=== PATIENT | female | born 1965 | race Caucasian/White ===

== ENCOUNTER → 2016-09-30 | Day surgery (SDC) | payer OTHER ==
[2016-09-29 09:39] VITALS: BMI 31.1
[~2016-09-30] MED LIST: BSS 500 ml-Vancomycin 10 mg-Phenylephrine 1 mg Irrigation IR ONE; CHONDROITIN SULFATE 0.5 ML/PFS INTRAOC ONE; DEXAMETHASONE 4 MG/ML VIAL IV PRN; DIAZEPAM 5 MG TAB PO PRN; FENTANYL 100 MCG/2 ML VIAL ONE; Hyaluronate Sodium (Provisc) 5.5 mg/0.55 ml syringe INTRAOC ONE; LABETALOL 20 MG/4 ML SYRINGE IV PRN; MIDAZOLAM 2 MG/2 ML VIAL ONE; ONDANSETRON HCL 4 MG/2 ML VIAL IV PRN; ONDANSETRON HCL 4 MG/2 ML VIAL ONE; PHENYLEPHRINE 2.5% OPHTH SOLN 2 ML BOT OP EYE ONE; PROPOFOL 200 MG/20 ML VIAL IV ONE; SCOPOLAMINE TRANSDERMAL PATCH TOP ONE; TETRACAINE 0.5% 2 ML OPHTH SOLN OP EYE ONE; TETRACAINE 0.5% 2 ML OPHTH SOLN OP EYE PRN; TROPICAMIDE 1% OPHTH SOLN 2 ML BOTTLE OP EYE ONE; Vancomycin 10 MG, Phenylephrine 1,000 MCG in Balanced Salt Solution 500 ML IO ONE; hydrALAZINE 20 MG/ML VIAL IV PRN
--- NOTE | 2016-09-30 08:32 | SC.ANESEVA ---
Anesthesia Eval & Plan ([facility]) - Providers Stated Procedure: right eye cataract surgery Surgeon:: Aarti Nava - Medications/Allergies Allergies: Allergies adhesive Allergy (Verified 09/29/16 09:45) Rash-Localized Home Medications: Home Medication List Azelastine HCl 205.5 mcg NS DAILY 09/29/16 [History] Cholecalciferol [Vitamin D] 1,000 units PO DAILY 09/29/16 [History] Fexofenadine HCl [Faustina Allergy] 60 mg PO DAILY 09/29/16 [History] Hydrochlorothiazide 25 mg PO DAILY 09/29/16 [History] Methylsulfonylmethane [MSM] 1,000 mg PO DAILY 09/29/16 [History] Potassium 99 mg PO DAILY 09/29/16 [History] Vitamin B Complex 1 each PO DAILY 09/29/16 [History] Current Medication List: Reviewed - Focused Physical Exam NPO since: Since after Midnight Mallampati: Class I Thyromental Distance: Greater than 3 Neck: Full Range of Motion Dental: Normal - no significant findings Cardiovascular/Chest: Normal (RRR no mumurs or rubs.) Respiratory: Lungs clear. negative: Wheezing Any problems with anesthesia, including nausea and vomiting?: Yes (nausea) Any relatives with a history of Malignant Hyperthermia?: No Prone to Motion Sickness: Yes Other: Diagnoses AGE-RELATED NUCLEAR CATARACT, RIGHT EYE (09/30/16) Allergies Allergy/AdvReac Type Severity Reaction Status Date / Time adhesive Allergy Rash-Locali Verified 09/29/16 09:45 zed Home Medications Medication Instructions Recorded Last Taken Type Docosahexanoic Acid/Epa [Fish Oil 1 each PO DAILY 04/28/13 05/01/13 08:00 History Concentrate Softgel] Flaxseed Oil [Flax Seed Oil] 1,000 mg PO DAILY 04/28/13 05/01/13 08:00 History Fluticasone Propionate [Flovent 1 puff INH BID 04/28/13 05/01/13 08:00 History Diskus 50 mcg] Levothyroxine Sodium [Synthroid] 75 mcg PO DAILY 04/28/13 05/01/13 08:00 History Multivitamin [Multiple Vitamins] 1 each PO DAILY 04/28/13 05/01/13 08:00 History Omeprazole 40 mg PO DAILY 08/08/13 08/11/13 08:00 History Verapamil HCl [Verapamil ER] 240 mg PO DAILY 04/28/13 05/01/13 08:00 History Dicyclomine HCl [Bentyl] 10 mg PO BID 05/02/13 Unknown History Azelastine HCl 205.5 mcg NS DAILY 09/29/16 Unknown History Cholecalciferol [Vitamin D] 1,000 units PO DAILY 09/29/16 Unknown History Fexofenadine HCl [Faustina Allergy] 60 mg PO DAILY 09/29/16 Unknown History Hydrochlorothiazide 25 mg PO DAILY 09/29/16 Unknown History Methylsulfonylmethane [MSM] 1,000 mg PO DAILY 09/29/16 Unknown History Potassium 99 mg PO DAILY 09/29/16 Unknown History Vitamin B Complex 1 each PO DAILY 09/29/16 Unknown History Height and Weight Patient's height 5 ft 2 in Patient's weight 77.27 kg Weight (Calculated Kilograms) 77.270 BMI 31.1 Vital Signs Temperature 97.2 F L 09/30/16 07:31 Pulse Rate 91 09/30/16 07:31 Respiratory Rate 18 09/30/16 07:31 Blood Pressure 134/89 09/30/16 07:31 Pulse Oxygen Saturation 93 09/30/16 07:31 - Anesthetic Plan Anesthesia Type: MAC ASA Class: 3 - Focused Review of Systems Cardiac History: Yes: Hx Hypertension, Hx Cardia Arrhythmia (palpitations) HEENT: Yes: Hx Vision Problem, Other HEENT Problems Respiratory: Yes: Hx CPAP Dependent Gastrointestinal: Yes: Hx Gastroesophageal Reflux Disease, Hx Colonoscopy Neurological/Musculoskeletal: Yes: Hx Migraine, Hx Neurological Disorders Endocrine: Yes: Hx Hypothyroidism Smoking Status: Never smoker Surgical History: Yes: Cholecystectomy
[2016-09-30 09:16] VITALS: TEMP 97.4
--- NOTE | 2016-09-30 09:19 | HIMOPRPT ---
DATE OF PROCEDURE: 09/30/16 PREOPERATIVE DIAGNOSIS: Cataract Right eye. POSTOPERATIVE DIAGNOSIS: Cataract Right eye. PROCEDURE: Cataract extraction by phacoemulsification of the Right eye SURGEON: Aarti Nava MD. ANESTHESIA: IV Sedation/Topical. COMPLICATIONS: None. PRE-OPERATIVE EVALUATION: The patient has been examined and deemed medically stable for cataract extraction with no apparent need for inpatient observation; outpatient setting is appropriate. Patient appears to be oriented to time, place and person. PROCEDURE IN DETAIL: The correct eye confirmed by patient, doctor, staff and paperwork. The operative eye was then marked by the doctor in the preoperative area. Eye drops were instilled into the operative eye to dilate the pupil. The patient was transported to the operating room and was placed in the supine position. A time out was performed before the beginning of the procedure. The operative eye was prepped and draped in the usual sterile fashion for ophthalmic surgery, taking care to isolate the lashes from the surgical field. Topical anesthetic drops were instilled into the operative eye. A lid speculum was placed. Betadine 5% was instilled in the operative eye for antiseptic. Microscope was brought into place for use throughout the case. The eye was inspected. A paracentesis incision was created with a side port knife. The temporal limbal corneal incision was performed with a jose blade. Viscoelastic was injected into the anterior chamber. Capsule forceps were used to create a capsulorhexis. Hydrodissection was performed with BSS. The nucleus was removed by phacoemulsification. Phaco time is noted below. The remaining cortical material was removed by I&A. The capsular bag was noted to be intact and distended with viscoelastic. The Intraocular lens was placed into the intact bag and centered without difficulty. The remaining viscoelastic was removed by I&A. Betadine 5% drops were placed to inspect wound and for antisepsis. Inspection revealed watertight wounds. The lid speculum was removed. Postoperative medications were instilled into the eye and a shield secured over the operative eye. IOL Type [id number] SN [id number] IOL Power 22.0 CDE 0.00 Discharge Summary: There were no complications and the patient was taken to the postoperative area in good condition. Postoperative instructions and outpatient follow up time were given.
[2016-09-30 09:25] VITALS: BP 125/80; PULSE 90
--- NOTE | 2016-09-30 09:43 | SC.ANESPOS ---
Post-Anesthesia Note LOC: Fully Awake Post-Anesthesia Assessment: Awake, Returned to Baseline, Hemodynamically Stable , Pain Control Adequate Phase I & II Recovery Complete: Yes Apparent Anesthesia Complication: No : N - Vital Signs Blood Pressure: 125/80 Pulse: 90 Resp Rate: 16 O2 Sat: 96 Temp: 97.4 F
== END ==
LOC: CPSC 07:00
PROVIDERS: ATTEND Ophthalmology
PROC: 08RJ3JZ Replacement of Right Lens with Synthetic Substitute, Percutaneous Approach (ICD-10-PCS; principal; 2016-09-30 08:45)
DX: H25.11 Age-related nuclear cataract, right eye (principal); I10 Essential (primary) hypertension; K21.9 Gastro-esophageal reflux disease without esophagitis; E03.9 Hypothyroidism, unspecified; K58.9 Irritable bowel syndrome, unspecified; G47.33 Obstructive sleep apnea (adult) (pediatric); G43.909 Migraine, unspecified, not intractable, without status migrainosus; Z79.899 Other long term (current) drug therapy; Z90.49 Acquired absence of other specified parts of digestive tract
CPT/HCPCS: 66984; J2250; J2405; J2704; J3010; J3490; V2632